=== PATIENT | female | born 1955 | race Caucasian/White ===

== ENCOUNTER → 2016-04-06 | Outpatient (CLI) | payer BC | LOC: LAB 10:36 | DX: I10 Essential (primary) hypertension (principal) ==

== ENCOUNTER → 2016-04-26 | Outpatient (CLI) | payer BC | LOC: LAB 09:52 | DX: R73.01 Impaired fasting glucose (principal); I10 Essential (primary) hypertension ==

== ENCOUNTER 2019-02-01 11:11 | Emergency (ER) | payer BC ==
[~2019-02-01] VITALS: Ht 157.5 cm; Wt 93.2 kg
[2019-02-01] MEDS ORDERED: HYDROCHLOROTHIA1 T14 PO (11:25)
[2019-02-01] MEDS ORDERED: LEADER C 250 MG1 TAB PO (11:26)
[2019-02-01 11:55] LABS: HEMATOCRIT 41.5 % (37.0-47.0); HEMOGLOBIN 13.6 g/dL (12.5-16.0); MEAN CELL VOLUME 92 fl (78-100); MEAN CORPUSCULAR HEMOGLOBIN 30 pg (27-31); MEAN CORPUSCULAR HGB CONC 33 g/dL (33-37); PLATELET COUNT 183 K/mm3 (130-400); RED BLOOD COUNT 4.51 M/mm3 (4.10-5.30); RED CELL DISTRIBUTION WIDTH 13.1 % (11.5-14.5); WHITE BLOOD COUNT 13.8 K/mm3 (4.8-10.8)
[2019-02-01 12:04] LABS: ALBUMIN 3.8 g/dL (3.4-4.8); POTASSIUM 3.5 mmol/L (3.5-5.1)
[2019-02-01 12:07] LABS: TOTAL PROTEIN 7.3 g/dL (6.2-8.1)
[2019-02-01 12:09] LABS: TOTAL BILIRUBIN 0.7 mg/dL (0.2-1.2)
[2019-02-01 12:27] LABS: LYMPHOCYTE 16 % (20-51); MONOCYTE 4 % (3-10); NEUTROPHILS 80 % (42-75)
[2019-02-01] MEDS ORDERED: PREDNISONE20 M1 PO ×2 (14:04→14:07)
[2019-02-01] MEDS ORDERED: GUAIFEN-CODEIN118 ML PO (14:04)
[2019-02-01] MEDS ORDERED: PROAIR HFA0.09 MG/AC IH ×2 (14:04→14:07)
[2019-02-01] MEDS ORDERED: CEFDINIR300 MG PO ×2 (14:04→14:07)
[2019-02-01] MEDS ORDERED: GOOD NEIGHBOR P20 M1 PO ×2 (14:04→14:07)
[2019-02-01] MEDS ORDERED: GUAIFEN-CODEINE5 ML PO (14:07)
[2019-02-01 14:31] VITALS: BP 114/62
== END 2019-02-01 14:32 | disposition home or self-care (01) ==
LOC: ED 11:11
PROVIDERS: Family Medicine
DX: J45.909 Unspecified asthma, uncomplicated (principal); K21.9 Gastro-esophageal reflux disease without esophagitis; I10 Essential (primary) hypertension; Z98.890 Other specified postprocedural states; Z87.891 Personal history of nicotine dependence
CPT/HCPCS: A4216; C9113; J0696; J2920

== ENCOUNTER → 2020-05-26 | Outpatient (CLI) | payer MEDICARE, BC ==
[~2020-05-26] MED LIST: CEFDINIR300 MG PO; GOOD NEIGHBOR P20 M1 PO; GUAIFEN-CODEIN118 ML PO; GUAIFEN-CODEINE5 ML PO; HYDROCHLOROTHIA1 T14 PO; LEADER C 250 MG1 TAB PO; PREDNISONE20 M1 PO; PROAIR HFA0.09 MG/AC IH
[2020-05-26 10:35] LABS: ALBUMIN 4.1 g/dL (3.4-4.8); POTASSIUM 4.9 mmol/L (3.5-5.1)
[2020-05-26 10:36] LABS: CALCIUM 9.5 mg/dL (8.3-10.5)
[2020-05-26 10:37] LABS: TOTAL PROTEIN 7.5 g/dL (6.2-8.1)
[2020-05-26 10:39] LABS: TOTAL BILIRUBIN 0.4 mg/dL (0.2-1.2)
[2020-05-26 10:52] LABS: PH-URINE 5.5 (5.0 - 8.0); URINE APPEARANCE CLEAR; URINE BILIRUBIN NEGATIVE (NEGATIVE); URINE BLOOD 250 ery/uL (NEGATIVE); URINE COLOR YELLOW; URINE GLUCOSE NEGATIVE (NEGATIVE); URINE KETONE NEGATIVE (NEGATIVE); URINE LEUKOCYTE ESTERASE TRACE (NEGATIVE); URINE NITRATE NEGATIVE (NEGATIVE); URINE PROTEIN(semi-quant) NEGATIVE (NEGATIVE); URINE UROBILINOGEN NORMAL (NORMAL)
[2020-05-26 11:36] LABS: EOS # 0.1 (0.04-0.40); EOS % 1.3 % (1.0-5.0); HEMATOCRIT 44.8 % (37.0-47.0); HEMOGLOBIN 14.7 g/dL (12.5-16.0); LYMPH# 1.7 (1.50-4.00); MEAN CELL VOLUME 93 fl (78-100); MEAN CORPUSCULAR HEMOGLOBIN 31 pg (27-31); MEAN CORPUSCULAR HGB CONC 33 g/dL (33-37); MEAN PLATELET VOLUME 11.6 fl (7.4-10.4); MONO # 0.5 (0.20-0.80); NEU # 3.6 (1.40-6.50); PLATELET COUNT 191 K/mm3 (130-400); RED BLOOD COUNT 4.81 M/mm3 (4.10-5.30); RED CELL DISTRIBUTION WIDTH 13.1 % (11.5-14.5); WHITE BLOOD COUNT 5.9 K/mm3 (4.8-10.8)
[2020-05-26 23:08] LABS: CREATININE OTHER SOURCE 57 mg/dL (())
== END ==
LOC: LAB 10:03
PROVIDERS: Internal Medicine
DX: Z12.11 Encounter for screening for malignant neoplasm of colon (principal); E78.2 Mixed hyperlipidemia; I10 Essential (primary) hypertension; K90.9 Intestinal malabsorption, unspecified; R73.03 Prediabetes

== ENCOUNTER → 2020-06-10 | Outpatient (CLI) | payer MEDICARE, BC | LOC: AMSURD 11:16 | DX: Z00.00 Encounter for general adult medical examination without abnormal findings (principal) ==

== ENCOUNTER → 2020-06-13 | Outpatient (CLI) | payer MEDICARE, BC ==
[2020-06-13 13:47] LABS: POTASSIUM 3.6 mmol/L (3.5-5.1)
[2020-06-13 13:49] LABS: TOTAL PROTEIN 7.1 g/dL (6.2-8.1)
[2020-06-13 13:51] LABS: EOS # 0.1 (0.04-0.40); EOS % 1.5 % (1.0-5.0); HEMOGLOBIN 13.6 g/dL (12.5-16.0); LYMPH# 2.3 (1.50-4.00); MEAN CELL VOLUME 92 fl (78-100); MEAN CORPUSCULAR HEMOGLOBIN 30 pg (27-31); MEAN CORPUSCULAR HGB CONC 32 g/dL (33-37); MEAN PLATELET VOLUME 11.9 fl (7.4-10.4); MONO # 0.6 (0.20-0.80); NEU # 4.9 (1.40-6.50); PLATELET COUNT 228 K/mm3 (130-400); RED BLOOD COUNT 4.57 M/mm3 (4.10-5.30); TOTAL BILIRUBIN 0.5 mg/dL (0.2-1.2); WHITE BLOOD COUNT 7.9 K/mm3 (4.8-10.8)
[2020-06-13 13:53] LABS: URINE APPEARANCE CLEAR; URINE BILIRUBIN NEGATIVE (NEGATIVE); URINE BLOOD 250 ery/uL (NEGATIVE); URINE COLOR YELLOW; URINE GLUCOSE NEGATIVE (NEGATIVE); URINE KETONE NEGATIVE (NEGATIVE); URINE LEUKOCYTE ESTERASE TRACE (NEGATIVE); URINE NITRATE NEGATIVE (NEGATIVE); URINE PROTEIN(semi-quant) TRACE mg/dL (NEGATIVE); URINE UROBILINOGEN NORMAL (NORMAL); URINE WBC 0-1 /hpf (0-3)
[2020-06-13 13:56] LABS: MAGNESIUM 2.07 mg/dL (1.60-2.60)
== END ==
LOC: LAB 12:21
PROVIDERS: Internal Medicine
DX: Z01.812 Encounter for preprocedural laboratory examination (principal)

== ENCOUNTER → 2020-06-22 | Outpatient (CLI) | payer MEDICARE, BC | LOC: RAD 08:47 | DX: C54.1 Malignant neoplasm of endometrium (principal); R91.1 Solitary pulmonary nodule | CPT/HCPCS: Q9967 ==

== ENCOUNTER → 2020-08-09 | Outpatient (CLI) | payer MEDICARE, BC ==
[2020-08-09 10:35] LABS: BASO # 0.06 (0.02-0.10); EOS % 3.4 % (1.0-5.0); HEMATOCRIT 42.7 % (37.0-47.0); HEMOGLOBIN 14.1 g/dL (12.5-16.0); LYMPH# 1.57 (1.50-4.00); MEAN CELL VOLUME 91 fl (78-100); MEAN CORPUSCULAR HEMOGLOBIN 30 pg (27-31); MEAN CORPUSCULAR HGB CONC 33 g/dL (33-37); MEAN PLATELET VOLUME 10.9 fl (7.4-10.4); MONO # 0.47 (0.20-0.80); NEU # 3.63 (1.40-6.50); PLATELET COUNT 208 K/mm3 (130-400); RED BLOOD COUNT 4.67 M/mm3 (4.10-5.30); RED CELL DISTRIBUTION WIDTH 12.6 % (11.5-14.5); WHITE BLOOD COUNT 5.9 K/mm3 (4.8-10.8)
[2020-08-09 10:54] LABS: POTASSIUM 4.2 mmol/L (3.5-5.1)
[2020-08-09 10:55] LABS: CALCIUM 9.3 mg/dL (8.3-10.5)
[2020-08-09 10:57] LABS: TOTAL PROTEIN 7.2 g/dL (6.2-8.1)
[2020-08-09 10:58] LABS: TOTAL BILIRUBIN 0.5 mg/dL (0.2-1.2)
== END ==
LOC: VAS 10:17 → RAD 11:00
PROVIDERS: Internal Medicine
DX: C54.1 Malignant neoplasm of endometrium (principal)

== ENCOUNTER → 2020-11-15 | Outpatient (CLI) | payer MEDICARE, BC | LOC: VAS 08:42 → RAD 10:00 | DX: Z01.810 Encounter for preprocedural cardiovascular examination (principal); C54.1 Malignant neoplasm of endometrium; I34.0 Nonrheumatic mitral (valve) insufficiency ==

== ENCOUNTER → 2020-12-26 | Outpatient (CLI) | payer MEDICARE, BC | LOC: RAD 08:48 | DX: R91.1 Solitary pulmonary nodule (principal); C54.1 Malignant neoplasm of endometrium; Z90.710 Acquired absence of both cervix and uterus | CPT/HCPCS: Q9967 ==

== ENCOUNTER → 2021-02-14 | Outpatient (CLI) | payer MEDICARE, BC | LOC: RAD 13:00 → VAS 13:38 → RAD 13:38 | DX: C54.1 Malignant neoplasm of endometrium (principal) ==

== ENCOUNTER → 2021-03-17 | Outpatient (CLI) | payer MEDICARE, BC | LOC: RAD 07:57 | DX: C54.1 Malignant neoplasm of endometrium (principal); R91.1 Solitary pulmonary nodule | CPT/HCPCS: Q9967 ==

== ENCOUNTER → 2021-06-07 | Outpatient (CLI) | payer MEDICARE, BC ==
[2021-06-07 11:46] LABS: MAGNESIUM 1.85 mg/dL (1.60-2.60)
[2021-06-07 12:16] LABS: URINE APPEARANCE CLEAR; URINE BILIRUBIN NEGATIVE (NEGATIVE); URINE BLOOD NEGATIVE (NEGATIVE); URINE COLOR YELLOW; URINE GLUCOSE NEGATIVE (NEGATIVE); URINE KETONE NEGATIVE (NEGATIVE); URINE LEUKOCYTE ESTERASE TRACE (NEGATIVE); URINE MUCUS PRESENT (NOT PRESENT); URINE NITRATE NEGATIVE (NEGATIVE); URINE PROTEIN(semi-quant) NEGATIVE (NEGATIVE); URINE UROBILINOGEN NORMAL (NORMAL)
== END ==
LOC: LAB 11:12
PROVIDERS: Internal Medicine
DX: Z12.9 Encounter for screening for malignant neoplasm, site unspecified (principal); Z12.31 Encounter for screening mammogram for malignant neoplasm of breast; R73.03 Prediabetes; I10 Essential (primary) hypertension; E78.2 Mixed hyperlipidemia; K90.9 Intestinal malabsorption, unspecified; Z28.9 Immunization not carried out for unspecified reason

== ENCOUNTER → 2021-06-09 | Outpatient (CLI) | payer MEDICARE, BC | LOC: MAMMO 08:22 | DX: Z12.31 Encounter for screening mammogram for malignant neoplasm of breast (principal) ==

== ENCOUNTER → 2021-06-09 | Outpatient (CLI) | payer MEDICARE, BC | LOC: RAD 08:26 | DX: C54.1 Malignant neoplasm of endometrium (principal); R91.1 Solitary pulmonary nodule | CPT/HCPCS: Q9967 ==

== ENCOUNTER → 2021-09-01 | Outpatient (CLI) | payer MEDICARE, BC | LOC: LAB 12:34 | DX: U07.1 COVID-19 (principal) ==

== ENCOUNTER → 2021-10-17 | Outpatient (CLI) | payer MEDICARE, BC | LOC: RAD 08:46 | DX: C54.1 Malignant neoplasm of endometrium (principal); K57.30 Diverticulosis of large intestine without perforation or abscess without bleeding; N28.1 Cyst of kidney, acquired; M43.17 Spondylolisthesis, lumbosacral region | CPT/HCPCS: Q9967 ==

== ENCOUNTER → 2022-03-28 | Outpatient (CLI) | payer MEDICARE, BC ==
[~2022-03-28] MED LIST changes: +KEYTRUDA25 MG/ML IV; +LENVIMA1 EAC1 PO; +ROSUVASTATIN CA20 MG PO
[2022-03-28 10:14] LABS: BASO # 0.03 K/mm3 (0.02-0.10); EOS # 0.07 K/mm3 (0.04-0.40); EOS % 1.2 % (1.0-5.0); HEMATOCRIT 41.4 % (37.0-47.0); HEMOGLOBIN 14.1 g/dL (12.5-16.0); LYMPH# 1.45 K/mm3 (1.50-4.00); MEAN CELL VOLUME 92 fl (78-100); MEAN CORPUSCULAR HEMOGLOBIN 31 pg (27-31); MEAN CORPUSCULAR HGB CONC 34 g/dL (33-37); MEAN PLATELET VOLUME 10.1 fl (7.4-10.4); MONO # 0.48 K/mm3 (0.20-0.80); NEU # 3.74 K/mm3 (1.40-6.50); PLATELET COUNT 157 K/mm3 (130-400); RED BLOOD COUNT 4.49 M/mm3 (4.10-5.30); RED CELL DISTRIBUTION WIDTH 12.7 % (11.5-14.5); WHITE BLOOD COUNT 5.8 K/mm3 (4.8-10.8)
[2022-03-28 10:19] LABS: ALBUMIN 4.1 g/dL (3.4-4.8); POTASSIUM 4.3 mmol/L (3.5-5.1)
[2022-03-28 10:20] LABS: CALCIUM 9.8 mg/dL (8.3-10.5)
[2022-03-28 10:21] LABS: TOTAL PROTEIN 7.5 g/dL (6.2-8.1)
[2022-03-28 10:23] LABS: TOTAL BILIRUBIN 0.7 mg/dL (0.2-1.2)
[2022-03-28 11:36] LABS: D-DIMER 1.67 mg/L FEU (0.15-0.50)
[2022-03-28 12:11] LABS: ERYTHROCYTE SEDIMENTATION RATE 30 mm/hr (0-30)
== END ==
LOC: LAB 09:13
PROVIDERS: Internal Medicine
DX: R06.00 Dyspnea, unspecified (principal); Z85.42 Personal history of malignant neoplasm of other parts of uterus
CPT/HCPCS: Q9967

== ENCOUNTER → 2022-04-05 | Outpatient (CLI) | payer MEDICARE, BC | LOC: RAD 04-03 14:00 | DX: R06.00 Dyspnea, unspecified (principal) ==

== ENCOUNTER → 2022-05-11 | Outpatient (CLI) | payer MEDICARE, BC | LOC: RAD 11:49 | DX: M51.16 Intervertebral disc disorders with radiculopathy, lumbar region (principal) ==

== ENCOUNTER → 2022-05-31 | Outpatient (CLI) | payer MEDICARE, BC ==
[2022-05-31 10:54] LABS: BASO # 0.02 K/mm3 (0.02-0.10); EOS # 0.03 K/mm3 (0.04-0.40); EOS % 0.4 % (1.0-5.0); HEMATOCRIT 39.1 % (37.0-47.0); HEMOGLOBIN 12.7 g/dL (12.5-16.0); LYMPH# 0.95 K/mm3 (1.50-4.00); MEAN CELL VOLUME 95 fl (78-100); MEAN CORPUSCULAR HEMOGLOBIN 31 pg (27-31); MEAN CORPUSCULAR HGB CONC 33 g/dL (33-37); MEAN PLATELET VOLUME 10.6 fl (7.4-10.4); MONO # 0.44 K/mm3 (0.20-0.80); NEU # 5.65 K/mm3 (1.40-6.50); PLATELET COUNT 218 K/mm3 (130-400); RED BLOOD COUNT 4.11 M/mm3 (4.10-5.30); RED CELL DISTRIBUTION WIDTH 12.5 % (11.5-14.5); WHITE BLOOD COUNT 7.1 K/mm3 (4.8-10.8)
[2022-05-31 11:00] LABS: ALBUMIN 4.1 g/dL (3.4-4.8); POTASSIUM 3.9 mmol/L (3.5-5.1)
[2022-05-31 11:01] LABS: CALCIUM 9.9 mg/dL (8.3-10.5)
[2022-05-31 11:02] LABS: TOTAL PROTEIN 7.3 g/dL (6.2-8.1)
[2022-05-31 11:04] LABS: TOTAL BILIRUBIN 0.5 mg/dL (0.2-1.2)
[2022-05-31 11:09] LABS: MAGNESIUM 1.87 mg/dL (1.60-2.60); PH-URINE 5.5 (5.0 - 8.0); URINE APPEARANCE CLEAR; URINE BILIRUBIN NEGATIVE (NEGATIVE); URINE BLOOD TRACE (NEGATIVE); URINE COLOR YELLOW; URINE GLUCOSE NEGATIVE (NEGATIVE); URINE KETONE 3+ (NEGATIVE); URINE LEUKOCYTE ESTERASE TRACE (NEGATIVE); URINE MUCUS PRESENT (NOT PRESENT); URINE NITRATE NEGATIVE (NEGATIVE); URINE PROTEIN(semi-quant) 1+ (NEGATIVE); URINE UROBILINOGEN NORMAL (NORMAL)
[2022-06-01 13:00] LABS: HEPATITIS C VIRUS ANTIBODY Negative (Negative)
== END ==
LOC: LAB 09:26
PROVIDERS: Internal Medicine
DX: I10 Essential (primary) hypertension (principal); K90.9 Intestinal malabsorption, unspecified; R73.03 Prediabetes; N39.0 Urinary tract infection, site not specified; E78.2 Mixed hyperlipidemia

== ENCOUNTER → 2022-10-25 | Outpatient (CLI) | payer MEDICARE, BC ==
[~2022-10-25] MED LIST changes: +ACETAMINOPHEN500 M5 PO; +DECADRON 4MG TAB4 MG PO; +ENOXAPARIN100 MG/M1 SQ; +GABAPENTIN100 MG PO; +LEVOTHYROXIN0.025 MG PO; +PRILOSEC 20MG20 MG PO
== END ==
LOC: RAD 08:51
DX: C54.1 Malignant neoplasm of endometrium (principal); C78.7 Secondary malignant neoplasm of liver and intrahepatic bile duct; I82.419 Acute embolism and thrombosis of unspecified femoral vein; I82.90 Acute embolism and thrombosis of unspecified vein; I82.429 Acute embolism and thrombosis of unspecified iliac vein; Z90.710 Acquired absence of both cervix and uterus; Z95.820 Peripheral vascular angioplasty status with implants and grafts
CPT/HCPCS: Q9967